=== PATIENT | female | born 1960 | race Caucasian/White ===

== ENCOUNTER 2021-05-08 16:40 | Emergency (ER) | payer BC, SELFPAY ==
[2021-05-08 16:58] VITALS: BP 163/86; PULSE 86; RESP 20; TEMP 37.2; O2SAT 100
--- NOTE | 2021-05-08 17:45 | ED.EAR ---
HPI - Ear Problem General Chief complaint: Ear Stated complaint: Ear Pain Time Seen by Provider: 05/08/21 17:46 Source: patient and RN notes reviewed Mode of arrival: ambulatory Limitations: no limitations History of Present Illness HPI Narrative: 60-year-old female presents with concern for right ear pain that is stabbing in nature, right facial pain and sinus pain. Reports 1 month history of sinus congestion and pressure. Reports she has been taking ibuprofen without relief. She denies fever, bodies, chills, sweats. Denies known sick contacts. Denies cough, shortness of breath. MD Complaint: ear pain Related Data Allergies Allergy/AdvReac Type Severity Reaction Status Date / Time bee venom protein (honey bee) Allergy Anaphylaxis Verified 05/08/21 17:21 [bees] butorphanol [From Stadol] Allergy Nausea and Verified 05/08/21 17:21 Vomiting erythromycin base Allergy Hives Verified 05/08/21 17:21 iohexol Allergy Anaphylaxis Verified 05/08/21 17:21 [From contrast - CT, X-RAY] morphine Allergy Nausea and Verified 05/08/21 17:21 Vomiting shellfish derived Allergy Anaphylaxis Verified 05/08/21 17:21 Sulfa (Sulfonamide Allergy Hives Verified 05/08/21 17:21 Antibiotics) Review of Systems Review of Systems: CONSTITUTIONAL: Denies malaise, chills, sweats, or fever. EYES: Denies visual changes, redness, or discharge. ENT: Reports rhinorrhea, congestion, sinus pain, otalgia and sore throat. CARDIOVASCULAR: Denies chest pain, palpitations, or edema. RESPIRATORY: Denies cough or dyspnea. GASTROINTESTINAL: Denies abdominal pain, nausea, vomiting, diarrhea SKIN: Denies rash or itching. MUSCULOSKELETAL: Denies myalgia. NEUROLOGIC: Denies headache. All systems reviewed & are unremarkable except as noted in HPI and below PMFSH Comments At time of signature, agree with nursing past medical, surgical, social and family history. There is no relevant family history pertinent to the presenting complaint Exam Narrative: GENERAL: Well-appearing, well-nourished, and in no acute distress. HEAD: Normocephalic EYES: PERRLA, conjunctivae clear ENT: Nares clear, turbinates edematous and erythematous, sinus tenderness. Mucous membranes moist. TM pearly guevara with dull light reflex bilaterally; no tragal tenderness. Oropharynx not erythematous without lesions. Tonsils not enlarged and without exudate, no drooling, no hoarseness, no trismus, uvula midline. NECK: Supple. No lymphadenopathy CHEST: Clear to auscultation, breath sounds equal. No wheezing, rhonchi, rales, or stridor. No respiratory distress, speaks in full sentences. HEART: Regular rate and rhythm. No murmur heard. SKIN: Warm, dry, no rash. NEURO: Alert and oriented x3. PSYCH: Normal mood and affect Course Course Emergency Course: Patient is aware of diagnosis, understands and agrees to treatment plan. Anticipatory guidance given. Patient agrees to follow-up as directed and is aware of reasons to seek care at the emergency department. Portions of this record may have been created with voice recognition software Vital Signs Vital signs: Vital Signs Temperature 98.9 F 05/08/21 16:58 Pulse Rate 86 05/08/21 16:58 Respiratory Rate 20 05/08/21 16:58 Blood Pressure 163/86 H 05/08/21 16:58 Pulse Oximetry 100 05/08/21 16:58 Temperature 98.9 F 05/08/21 16:58 Pulse Rate 86 05/08/21 16:58 Respiratory Rate 20 05/08/21 16:58 Blood Pressure 163/86 H 05/08/21 16:58 Pulse Oximetry 100 05/08/21 16:58 Reviewed. Medical Decision Making MDM Narrative Medical decision making narrative: Differential diagnosis considered: Jensen virus, strep pharyngitis, allergic rhinitis, upper respiratory tract infection, sinusitis, rhinosinusitis, nasopharyngitis. viral pharyngitis, otitis media, otitis externa, pneumonia, bronchitis, viral cough syndrome, viral syndrome, and influenza. Exam findings show no acute concerns or changes; patient is non-toxic merrick
== END 2021-05-08 17:56 | disposition home or self-care (01) ==
PROVIDERS: Emergency Provider Nurse Practitioner
DX: J01.90 Acute sinusitis, unspecified (principal)
CPT/HCPCS: 99213; G0463